=== PATIENT | female | born 1990 | race Caucasian/White ===

== ENCOUNTER 2018-10-23 08:00 | Outpatient (CLI) | payer BC ==
[2018-10-23 17:51] LABS: BASOPHILS # (AUTO) 0.1 10^3/uL (0.0-0.1); BASOPHILS % (AUTO) 0.7 %; EOSINOPHILS % (AUTO) 0.6 %; HGB - HEMOGLOBIN 14.6 g/dL (12.0-16.0); LYMPHOCYTES # (AUTO) 1.3 10^3/uL (1.5-3.5); LYMPHOCYTES % (AUTO) 16.3 %; MEAN CORPUSCULAR HEMOGLOBIN 29.3 pg (27.0-31.0); MEAN CORPUSCULAR HGB CONC 33.4 g/dL (32.0-36.0); MEAN CORPUSCULAR VOLUME 87.7 fL (81.0-99.0); MEAN PLATELET VOLUME 8.6 fL (7.9-10.8); MONOCYTES # (AUTO) 0.5 10^3/uL (0.0-1.0); MONOCYTES % (AUTO) 5.5 %; NEUTROPHILS # (AUTO) 6.3 10^3/uL (1.5-6.6); NEUTROPHILS % (AUTO) 76.9 %; PLT - PLATELET COUNT 296 10^3/uL (130-450); RED BLOOD COUNT 4.97 10^6/uL (4.20-5.40); RED CELL DISTRIBUTION WIDTH 13.9 % (12.0-15.0); WHITE BLOOD COUNT 8.2 x10^3/uL (4.8-10.8)
[2018-10-23 18:13] LABS: ALBUMIN 4.9 g/dL (3.2-5.5); ALBUMIN/GLOBULIN RATIO 1.8 (1.0-2.2); BILIRUBIN,TOTAL 0.5 mg/dL (0.2-1.0); CALCIUM 9.7 mg/dL (8.5-10.3); CREATININE 0.6 mg/dL (0.4-1.0); TOTAL PROTEIN 7.7 g/dL (6.7-8.2)
[2018-10-23 18:19] LABS: CORTISOL 22.1 ug/dL
[2018-10-23 18:21] LABS: T4 (THYROXINE) 7.57 ug/dL (6.09-12.23); THYROID STIMULATING HORMONE 0.68 uIU/mL (0.34-5.60)
[2018-10-23 18:28] LABS: FERRITIN 27.6 ng/mL (11.0-306.8); TOTAL T3 1.17 ng/mL (0.87-1.78)
== END 2018-10-23 23:59 | disposition home or self-care (01) ==
LOC: LAB.F 08:00
PROVIDERS: ATTEND Nurse Practitioner Family
DX: F41.9 Anxiety disorder, unspecified (principal); F51.05 Insomnia due to other mental disorder
CPT/HCPCS: 36415; 80053; 82306; 82533; 82728; 84436; 84443; 84480; 84481; 85025

== ENCOUNTER 2022-10-03 18:34 | Outpatient (CLI) | payer BC | END 2022-10-03 18:35 | disposition EMS.NT | LOC: EMS 18:34 | DX: R52 Pain, unspecified (principal); V43.52XA Car driver injured in collision with other type car in traffic accident, initial encounter; Y92.413 State road as the place of occurrence of the external cause ==

== ENCOUNTER 2022-10-03 20:00 | Emergency (ER) | payer OTHER, BC ==
[2022-10-03 21:56] VITALS: BP 116/74
== END 2022-10-03 22:25 | disposition left against medical advice (07) ==
LOC: ED 20:00
DX: Z53.21 Procedure and treatment not carried out due to patient leaving prior to being seen by health care provider (principal)
CPT/HCPCS: 93005

== ENCOUNTER 2024-04-01 09:21 | Outpatient (CLI) | payer BC ==
[~2024-04-01 09:21] MED LIST: GADOTERATE MEGLUMINE 5 MMOL/10 ML VIAL ONE
[2024-04-01] MEDS: GADOTERATE MEGLUMINE 5 MMOL/10 ML VIAL IVP ONE (17:07)
--- NOTE | 2024-04-02 10:48 | MRI Report ---
PROCEDURE: IAC'S W/WO INDICATIONS: L EAR TINNITUS CONTRAST: clariscan 9.8ml TECHNIQUE: Noncontrast sagittal T1 spin echo, axial FLAIR, axial gradient echo, axial diffusion and ADC through the brain. Axial thin-slice 3D CISS, coronal balanced GE, axial T1 spin echo with fat saturation thr ough the internal auditory canals. After the administration of contrast, thin slice axial and coy l T1 spin echo with fat saturation through the internal auditory canals, and axial T1 spin echo with fat saturation through the brain. COMPARISON: None. FINDINGS: Image quality: Excellent. Cerebellopontine angles: No cerebellopontine angle masses. Inner ear structures appear normally for med. No suspicious enhancement in the internal auditory canal or along the course of the 7th cranial nerve. CSF spaces: Ventricles are normal in size and shape. No extra-axial fluid collections. Basal ciste rns are patent. Brain: No intracranial bleeds or mass effects. Weeks-white matter interface is intact. No abnormal intracranial enhancement. Diffusion weighted images demonstrate no acute ischemic insults. Brainste m appears normal. Normal intravascular flow voids are present. Skull and face: Calvarial marrow signal is normal. Orbits appear normal. Sinuses: Sinuses and mastoids are clear. IMPRESSION: No imaging explanation is found for the patient's presenting symptoms. Specifically, no findings of masses or abnormal enhancement can be found within the internal auditory canals or the ce rebellopontine angle cisterns. Reviewed by: Lance Lopez MD on 04/02/2024 9:47 AM COLTEN Approved by: Lance Lopez MD on 04/02/2024 9:47 AM COLTEN Station ID: [id number]
== END 2024-04-01 09:22 | disposition home or self-care (01) ==
LOC: DI 09:21
PROVIDERS: ATTEND Otolaryngology
DX: H93.12 Tinnitus, left ear (principal)
CPT/HCPCS: 70553; A9575